=== PATIENT | female | born 1985 | race Caucasian/White ===

== ENCOUNTER → 2024-04-13 03:30 | Outpatient (CLI) | payer MEDICAID, SELFPAY ==
--- NOTE | 2024-04-13 | DI.RAD_ITS ---
Exam(s) XR HAND RT LIMITED XR HAND LT LIMITED EXAM: XR HAND LT LIMITED CLINICAL HISTORY: M79.642 LT hand pain. TECHNIQUE: 2D digital imaging was performed. Two views of both hands. COMPARISON: CR XR HAND RT LIMITED from 04/13/2024 FINDINGS: BONES: No acute fracture is present. No bony destructive lesion is seen. JOINTS: No dislocation present. No joint space narrowing or periarticular spurring. SOFT TISSUE: Normal. IMPRESSION: Unremarkable radiographs of the hands. DATA REPOSITORY: RADIATION DOSE DELIVERED:
--- NOTE | 2024-04-13 10:10 | DI.RAD_ITS ---
Exam(s) XR FOOT LT LIMITED XR FOOT RT LIMITED EXAM: XR FOOT RT LIMITED CLINICAL HISTORY: M79.671 RT foot pain. TECHNIQUE: 2D digital imaging was performed. 2 views of both feet. COMPARISON: CR XR FOOT LT LIMITED from 04/13/2024 FINDINGS: BONES: No acute fracture is present. No bony destructive lesion is seen. The bones are normally mine ralized. JOINTS: No dislocation present. No joint space narrowing or periarticular spurring. The plantar arc h is maintained bilaterally. SOFT TISSUE: Normal. IMPRESSION: Unremarkable radiographs of the feet. DATA REPOSITORY: RADIATION DOSE DELIVERED:
== END ==
PROVIDERS: PCP Family Medicine; Visit Provider Internal Medicine Rheumatology
DX: M79.642 Pain in left hand (principal); M79.641 Pain in right hand; M79.671 Pain in right foot
CPT/HCPCS: 73120; 73620